=== PATIENT | male | born 1965 | race Caucasian/White ===

== ENCOUNTER 2017-01-19 10:55 | Outpatient (CLI) ==
--- NOTE | 2017-01-19 11:39 | DI ---
Exam: Five views lumbar spine including bilateral oblique. Clinical indication: Low back pain with sciatica. Findings: The alignment of the lumbar spine is within normal limits. The disc spaces are well maintained. There are no fractures, dislocations or other significant bony abnormalities. There is no obvious r adiographic evidence of bilateral neural foraminal narrowing. The soft tissues are unremarkable. Impression: Unremarkable radiographs of the lumbar spine.
== END 2017-01-19 10:56 | disposition home or self-care (01) ==
LOC: RAD 10:55
PROVIDERS: ATTEND Family Medicine
DX: M54.5 Low back pain (principal); G89.29 Other chronic pain

== ENCOUNTER 2017-05-13 12:26 | Outpatient (CLI) ==
--- NOTE | 2017-05-13 13:16 | DI ---
EXAM: Seven views of the bilateral ribs HISTORY: Bilateral rib pain with no known injury. COMPARISON: None FINDINGS: There is no cortical irregularity or displaced fracture of the right ribs. There is no lyt ic or blastic lesion. The left ribs demonstrate no cortical disruption or displaced fracture. There is no lytic or blastic lesion. There is fusion hardware in the cervical spine. IMPRESSION: No acute abnormality or displaced fracture of the ribs.
== END 2017-05-13 12:27 | disposition home or self-care (01) ==
LOC: RAD 12:26
PROVIDERS: ATTEND Family Medicine
DX: R07.81 Pleurodynia (principal)

== ENCOUNTER 2018-01-14 11:29 | Outpatient (CLI) ==
--- NOTE | 2018-01-14 12:16 | DI ---
EXAM: Three views of the left foot. History: Left foot pain. Findings: No acute fracture or dislocation. Moderate narrowing of the first MTP joint with marginal sclerosis and osteophyte formation. Small plantar spur. No abnormal calcifications or radiopaque fo reign bodies. Impression: 1. No acute osseous abnormality. 2. Moderate osteoarthritis of the first MTP joint. 3. Small plantar spur
== END 2018-01-14 11:30 | disposition home or self-care (01) ==
LOC: RAD 11:29
PROVIDERS: ATTEND Family Medicine
DX: M79.672 Pain in left foot (principal)

== ENCOUNTER 2018-02-07 11:28 | Outpatient (CLI) | END 2018-02-07 11:48 | disposition short-term general hospital (02) | LOC: AMBL 11:28 | PROVIDERS: ATTEND Internal Medicine | DX: G40.409 Other generalized epilepsy and epileptic syndromes, not intractable, without status epilepticus (principal); R06.03 Acute respiratory distress; R41.82 Altered mental status, unspecified; R00.0 Tachycardia, unspecified; R11.0 Nausea; G81.94 Hemiplegia, unspecified affecting left nondominant side; R40.2421 Glasgow coma scale score 9-12, in the field [EMT or ambulance]; Z72.0 Tobacco use; Z86.03 Personal history of neoplasm of uncertain behavior; Z98.890 Other specified postprocedural states ==

== ENCOUNTER 2018-04-02 11:28 | Outpatient (CLI) ==
--- NOTE | 2018-04-02 14:08 | DI ---
EXAM: Single view of the pelvis. History: Right hip pain. Findings: No acute fracture or dislocation. Moderate narrowing of the right hip joint with marginal sclerosis and osteophyte formation. Mild narrowing of the left hip joint with marginal sclerosis an d small osteophytes. No radiopaque foreign bodies. Impression: 1. No acute osseous abnormality. 2. Moderate osteoarthritis of the right hip joint and mild osteoarthritis of the left hip joint
--- NOTE | 2018-04-02 14:10 | DI ---
EXAM: Five views of the lumbar spine. History: Lower back pain. Comparison: Lumbar spine radiograph 01/19/2017 Findings: No acute fracture. No change in the minimal 2 mm retrolisthesis of L4 on L5 and L5 on S1. Moderate to severe disc space narrowing at L5-S1 has progressed compared to the prior study. Mild disc space narrowing seen elsewhere. Moderate facet hypertrophy at L5-S1 also has slightly progresse d. Impression: 1. No acute osseous abnormality of the lumbar spine. 2. Moderate to severe degenerative changes at L5-S1 have slightly progressed compared to the prior s everette.
== END 2018-04-02 11:29 | disposition home or self-care (01) ==
LOC: RAD 11:28
PROVIDERS: ATTEND Family Medicine
DX: M54.5 Low back pain (principal); M25.551 Pain in right hip

== ENCOUNTER 2018-05-16 14:18 | Outpatient (CLI) | END 2018-05-16 14:19 | disposition home or self-care (01) | LOC: LAB 14:18 | PROVIDERS: ATTEND Neurological Surgery | DX: C71.9 Malignant neoplasm of brain, unspecified (principal) | CPT/HCPCS: 36415; 85025 ==

== ENCOUNTER 2018-05-19 15:41 | Outpatient (CLI) | END 2018-05-19 15:42 | disposition home or self-care (01) | LOC: LAB 15:41 | PROVIDERS: ATTEND Neurological Surgery | DX: C71.9 Malignant neoplasm of brain, unspecified (principal) | CPT/HCPCS: 36415; 85008; 85025 ==

== ENCOUNTER 2018-06-03 08:19 | Outpatient (CLI) | END 2018-06-03 08:20 | disposition home or self-care (01) | LOC: LAB 08:19 | PROVIDERS: ATTEND Neurological Surgery | DX: C71.9 Malignant neoplasm of brain, unspecified (principal) | CPT/HCPCS: 36415; 85025 ==

== ENCOUNTER 2018-08-27 13:45 | Outpatient (CLI) | END 2018-08-27 14:14 | disposition short-term general hospital (02) | LOC: AMBL 13:45 | PROVIDERS: ATTEND Emergency Medicine | DX: G40.909 Epilepsy, unspecified, not intractable, without status epilepticus (principal); C71.9 Malignant neoplasm of brain, unspecified ==

== ENCOUNTER 2018-09-17 10:42 | Outpatient (CLI) | END 2018-09-17 10:43 | disposition home or self-care (01) | LOC: LAB 10:42 | PROVIDERS: ATTEND Family Medicine | DX: E87.1 Hypo-osmolality and hyponatremia (principal) | CPT/HCPCS: 36415; 80048 ==

== ENCOUNTER 2018-09-24 12:13 | Outpatient (CLI) | END 2018-09-24 12:14 | disposition home or self-care (01) | LOC: LAB 12:13 | PROVIDERS: ATTEND Family Medicine | DX: E87.1 Hypo-osmolality and hyponatremia (principal) | CPT/HCPCS: 36415; 80048 ==

== ENCOUNTER 2018-10-01 11:59 | Outpatient (CLI) | END 2018-10-01 12:00 | disposition home or self-care (01) | LOC: LAB 11:59 | PROVIDERS: ATTEND Family Medicine | DX: E87.1 Hypo-osmolality and hyponatremia (principal) | CPT/HCPCS: 36415; 80048 ==

== ENCOUNTER 2018-10-08 09:01 | Outpatient (CLI) | END 2018-10-08 09:02 | disposition home or self-care (01) | LOC: LAB 09:01 | PROVIDERS: ATTEND Family Medicine | DX: E87.1 Hypo-osmolality and hyponatremia (principal) | CPT/HCPCS: 36415; 80048 ==

== ENCOUNTER 2018-10-15 11:46 | Outpatient (CLI) | END 2018-10-15 11:47 | disposition home or self-care (01) | LOC: LAB 11:46 | PROVIDERS: ATTEND Family Medicine | DX: E87.1 Hypo-osmolality and hyponatremia (principal) | CPT/HCPCS: 36415; 80048 ==

== ENCOUNTER 2018-10-22 11:53 | Outpatient (CLI) | END 2018-10-22 11:54 | disposition home or self-care (01) | LOC: LAB 11:53 | PROVIDERS: ATTEND Family Medicine | DX: E87.1 Hypo-osmolality and hyponatremia (principal) | CPT/HCPCS: 36415; 80048 ==

== ENCOUNTER 2018-12-10 12:02 | Outpatient (CLI) | END 2018-12-10 12:03 | disposition home or self-care (01) | LOC: LAB 12:02 | PROVIDERS: ATTEND Family Medicine | DX: E87.1 Hypo-osmolality and hyponatremia (principal) | CPT/HCPCS: 36415; 80048 ==

== ENCOUNTER 2019-02-20 08:59 | Outpatient (CLI) | END 2019-02-20 09:00 | disposition home or self-care (01) | LOC: LAB 08:59 | PROVIDERS: ATTEND Family Medicine | DX: E87.1 Hypo-osmolality and hyponatremia (principal) | CPT/HCPCS: 36415; 80048; 83735 ==